=== PATIENT | female | born 1945 | race Two or more races ===

== ENCOUNTER 2020-06-25 10:05 | Emergency (ER) | payer MEDICARE, OTHER ==
[2020-06-25 10:13] VITALS: BP 130/70; PULSE 79; TEMP 97.7; BMI 33.6
[2020-06-25] MEDS ORDERED: ACETAMINOPHEN 500 MG TABLET (FP) PO ONE (11:07)
[2020-06-25] MEDS ORDERED: ACETAMINOPHEN 500 MG TABLET (FP) ONE (11:16)
== END 2020-06-25 11:45 | disposition home or self-care (01) ==
LOC: JERFT 10:05
DX: M79.604 Pain in right leg (principal); M25.551 Pain in right hip
CPT/HCPCS: 99283-25

== ENCOUNTER 2023-08-07 11:03 | Observation (INO) | payer OTHER ==
[2023-08-07 12:32] LABS: BASO % 0.2 % (0-2.0); HEMATOCRIT 42.6 % (32.4-45.2); HEMOGLOBIN 13.5 GM/dL (10.7-15.3); LYMPH % 15.1 % (8-40); MCH 25.2 pg (25.7-33.7); MCHC 31.6 g/dl (32.0-36.0); MEAN CELL VOLUME 79.7 fl (80-96); MEAN PLT VOLUME 9.8 fl (7.5-11.1); MONO % 7.6 % (3.8-10.2); NEUT % 77.1 % (42.8-82.8); PLATELET COUNT 282 10^3/uL (134-434); RBC 5.34 M/mm3 (3.60-5.2); RDW 14.3 % (11.6-15.6); WHITE BLOOD COUNT 13.2 K/mm3 (4.0-10.0)
[2023-08-07 12:41] LABS: INR 1.12 (0.83-1.09)
[2023-08-07 12:44] LABS: ACTIVATED PTT 33.1 SECONDS (25.2-36.5)
[2023-08-07 12:57] LABS: POTASSIUM 4.6 mmol/L (3.5-5.1)
[2023-08-07 12:59] LABS: CALCIUM 9.3 mg/dL (8.5-10.1)
[2023-08-07 13:00] LABS: ALBUMIN 3.2 g/dl (3.4-5.0); BLOOD UREA NITROGEN 18.6 mg/dL (7-18)
[2023-08-07 13:05] LABS: BILIRUBIN,TOTAL 0.4 mg/dL (0.2-1); TOT PROT 7.4 g/dl (6.4-8.2)
[2023-08-07 13:25] LABS: VENOUS BASE EXCESS 1.1 mmol/L (-2-2); VENOUS O2 SATURATION 38.6 % (70-80); VENOUS PCO2 44.1 mmHg (38-52); VENOUS PH 7.395 (7.310-7.410)
[2023-08-07 16:06] LABS: PH,URINE 5.5 (5.0-8.0); URINE APPEARANCE CLEAR; URINE BILIRUBIN NEGATIVE (NEGATIVE); URINE COLOR YELLOW; URINE GLUCOSE (UA) NEGATIVE (NEGATIVE); URINE KETONE TRACE (NEGATIVE); URINE LEUK ESTERASE NEGATIVE (NEGATIVE); URINE NITRITE NEGATIVE (NEGATIVE); URINE PROTEIN NEGATIVE (NEGATIVE); URINE UROBILINOGEN 0.2 mg/dL (0.2-1.0)
[2023-08-07] MEDS ORDERED: ENOXAPARIN NA (PORCINE) 100 MG/1 ML DISP.SYRIN SQ ONE ×2 (18:18→18:32)
[2023-08-07 21:14] VITALS: RESP 18
[2023-08-08 01:35] VITALS: BMI 26.2
[2023-08-08] MEDS ORDERED: ENOXAPARIN NA (PORCINE) 80 MG/0.8 ML DISP.SYRIN SQ SCH (06:30)
[2023-08-08] MEDS ORDERED: LEVOTHYROXINE NA 112 MCG TABLET (FP) PO SCH (07:00)
[2023-08-08 07:27] LABS: BASO % 0.3 % (0-2.0); HEMATOCRIT 40.8 % (32.4-45.2); LYMPH % 18.3 % (8-40); MCH 25.3 pg (25.7-33.7); MCHC 31.8 g/dl (32.0-36.0); MEAN CELL VOLUME 79.5 fl (80-96); MEAN PLT VOLUME 9.6 fl (7.5-11.1); MONO % 5.7 % (3.8-10.2); NEUT % 75.7 % (42.8-82.8); PLATELET COUNT 280 10^3/uL (134-434); RBC 5.14 M/mm3 (3.60-5.2); RDW 13.8 % (11.6-15.6); WHITE BLOOD COUNT 10.4 K/mm3 (4.0-10.0)
[2023-08-08 07:46] LABS: POTASSIUM 3.7 mmol/L (3.5-5.1)
[2023-08-08 07:48] LABS: ALBUMIN 3.2 g/dl (3.4-5.0); BLOOD UREA NITROGEN 12.9 mg/dL (7-18); CALCIUM 9.2 mg/dL (8.5-10.1)
[2023-08-08 07:51] LABS: CREATININE 0.8 mg/dL (0.55-1.3)
[2023-08-08 08:27] LABS: BILIRUBIN,TOTAL 0.5 mg/dL (0.2-1)
[2023-08-08] MEDS ORDERED: LEVOTHYROXINE NA 100 MCG TABLET (FP) PO SCH (09:00)
[2023-08-08] MEDS: MEMANTINE HCL 10 MG TABLET (FP) PO SCH (09:51)
[2023-08-08] MEDS ORDERED: DONEPEZIL HCL 5 MG TABLET (FP) PO SCH (22:00)
[2023-08-09 06:10] VITALS: BP 146/71; PULSE 73; TEMP 97.3
[2023-08-09 08:19] LABS: BASO % 0.3 % (0-2.0); HEMATOCRIT 41.1 % (32.4-45.2); HEMOGLOBIN 13.3 GM/dL (10.7-15.3); LYMPH % 21.6 % (8-40); MCH 25.8 pg (25.7-33.7); MCHC 32.4 g/dl (32.0-36.0); MEAN CELL VOLUME 79.8 fl (80-96); MEAN PLT VOLUME 9.7 fl (7.5-11.1); NEUT % 69.1 % (42.8-82.8); PLATELET COUNT 260 10^3/uL (134-434); RBC 5.15 M/mm3 (3.60-5.2); RDW 14.3 % (11.6-15.6); WHITE BLOOD COUNT 8.5 K/mm3 (4.0-10.0)
[2023-08-09 08:35] LABS: POTASSIUM 3.7 mmol/L (3.5-5.1)
[2023-08-09 08:47] LABS: BLOOD UREA NITROGEN 15.8 mg/dL (7-18); CALCIUM 9.1 mg/dL (8.5-10.1)
[2023-08-09 08:50] LABS: CREATININE 0.8 mg/dL (0.55-1.3)
[2023-08-09 08:52] LABS: BILIRUBIN,TOTAL 0.4 mg/dL (0.2-1); TOT PROT 6.8 g/dl (6.4-8.2)
[2023-08-09] MEDS: MEMANTINE HCL 10 MG TABLET (FP) PO SCH (09:38)
[2023-08-09] MEDS ORDERED: ENOXAPARIN NA (PORCINE) 40 MG/0.4 ML DISP.SYRIN SQ SCH (10:00)
== END 2023-08-09 13:45 | disposition home or self-care (01) ==
LOC: JER 11:03 → JERBED 19:53 → J4W 08-08 01:15
PROVIDERS: ADMIT Internal Medicine; ATTEND Family Medicine
DX: G30.1 Alzheimer's disease with late onset (principal); F02.80 Dementia in other diseases classified elsewhere, unspecified severity, without behavioral disturbance, psychotic disturbance, mood disturbance, and anxiety; I26.99 Other pulmonary embolism without acute cor pulmonale; R29.6 Repeated falls; M25.562 Pain in left knee; W18.39XA Other fall on same level, initial encounter; Y93.89 Activity, other specified; Y92.099 Unspecified place in other non-institutional residence as the place of occurrence of the external cause; R55 Syncope and collapse; E03.9 Hypothyroidism, unspecified
CPT/HCPCS: 0241U-QW; 36415; 70450-TC; 71045-TC-FY; 71260-TC; 72125-TC; 72170-TC-FY; 73552-TC-LT-FY; 73564-TC-LT-FY; 74177-TC; 80053; 81003; 82550; 82553; 82803; 83605; 84443; 84484; 85025; 85610; 85730; 86850; 86900; 86901; 87040; 87086; 93005; 93010; 96372; 99285-25; G0378; Q9967

== ENCOUNTER 2024-05-11 11:01 | Emergency (ER) | payer OTHER ==
[2024-05-11 11:54] VITALS: RESP 18; BMI 37.8
[2024-05-11 13:09] LABS: BASO % 0.2 % (0-2.0); HEMATOCRIT 44.9 % (32.4-45.2); HEMOGLOBIN 14.2 GM/dL (10.7-15.3); LYMPH % 10.7 % (8-40); MCH 27.8 pg (25.7-33.7); MCHC 31.5 g/dl (32.0-36.0); MEAN CELL VOLUME 88.2 fl (80-96); MEAN PLT VOLUME 9.6 fl (7.5-11.1); MONO % 4.8 % (3.8-10.2); NEUT % 84.3 % (42.8-82.8); PLATELET COUNT 148 10^3/uL (134-434); RBC 5.09 M/mm3 (3.60-5.2); RDW 15.7 % (11.6-15.6); WHITE BLOOD COUNT 10.8 K/mm3 (4.0-10.0)
[2024-05-11 13:34] LABS: URINE APPEARANCE CLEAR; URINE BILIRUBIN NEGATIVE (NEGATIVE); URINE COLOR YELLOW; URINE GLUCOSE (UA) NEGATIVE (NEGATIVE); URINE KETONE NEGATIVE (NEGATIVE); URINE LEUK ESTERASE NEGATIVE (NEGATIVE); URINE NITRITE NEGATIVE (NEGATIVE); URINE PROTEIN NEGATIVE (NEGATIVE); URINE UROBILINOGEN 0.2 mg/dL (0.2-1.0)
[2024-05-11 13:54] LABS: POTASSIUM 4.1 mmol/L (3.5-5.1)
[2024-05-11 13:56] LABS: CALCIUM 9.1 mg/dL (8.5-10.1)
[2024-05-11 13:57] LABS: ALBUMIN 3.5 g/dl (3.4-5.0); BLOOD UREA NITROGEN 30.5 mg/dL (7-18); MAGNESIUM 2.3 mg/dL (1.8-2.4)
[2024-05-11 14:00] LABS: CREATININE 1.3 mg/dL (0.55-1.3)
[2024-05-11 14:01] LABS: BILIRUBIN,TOTAL 0.3 mg/dL (0.2-1)
[2024-05-11] MEDS: SODIUM CHLORIDE 500 ML IV STA ×2 (14:13→16:18)
[2024-05-11 15:21] VITALS: BP 140/80; PULSE 69; TEMP 97.5
== END 2024-05-11 18:41 | disposition home or self-care (01) ==
LOC: JER 11:01
PROC: 3E0337Z Introduction of Electrolytic and Water Balance Substance into Peripheral Vein, Percutaneous Approach (ICD-10-PCS; principal; 2024-05-11)
DX: R55 Syncope and collapse (principal)
CPT/HCPCS: 36415; 70450-TC; 71045-TC-FY; 80053; 81003; 83735; 85025; 87086; 93005; 93010; 96360; 96361; 99285-25